=== PATIENT | female | born 1950 | race Hispanic/Latino ===

== ENCOUNTER → 2019-06-13 | Day surgery (SDC) | payer MEDICARE ==
[2019-06-08 16:42] LABS: BASOPHILS # (AUTO) 0.1 (0.0-0.1); BASOPHILS % 0.8 % (0.0-1.0); EOSINOPHILS # (AUTO) 0.4 (0.0-0.4); EOSINOPHILS % 4.3 % (0.0-6.0); HEMATOCRIT 35.8 % (34.2-44.1); HEMOGLOBIN 11.7 g/dL (12.0-16.0); LYMPHOCYTES # (AUTO) 3.5 (1.0-3.2); LYMPHOCYTES % 38.7 % (18.0-39.1); MEAN CORPUSCULAR HEMOGLOBIN 29.8 pg (28-32); MEAN CORPUSCULAR HGB CONC 32.7 g/dL (31-35); MEAN CORPUSCULAR VOLUME 91.1 fL (81-99); MONOCYTES # (AUTO) 0.8 (0.2-0.8); MONOCYTES % 8.4 % (4.4-11.3); NEUTROPHILS # (AUTO) 4.3 (2.1-6.9); NEUTROPHILS % 47.6 % (38.7-80.0); PLATELET COUNT 357 x10e3/uL (140-360); RED BLOOD COUNT 3.93 x10e6/uL (3.6-5.1); RED CELL DISTRIBUTION WIDTH 12.1 % (11.7-14.4)
[2019-06-08 17:04] LABS: BLOOD UREA NITROGEN 9 mg/dL (7-26); BUN/CREATININE RATIO 12 (6-25); CALCIUM 9.7 mg/dL (8.4-10.2); CARBON DIOXIDE 27 mmol/L (22-29); CHLORIDE 98 mmol/L (98-107); CREATININE, SERUM 0.73 mg/dL (0.57-1.11); EST GLOMERULAR FILTRATION RATE > 60 ML/MIN (60-); GLUCOSE 70 mg/dL (74-118); SODIUM 136 mmol/L (136-145)
--- NOTE | 2019-06-08 17:20 | Diagnostic Imaging Report ---
EXAMINATION: CHEST 2 VIEWS INDICATION: Pre-operative COMPARISON: None FINDINGS: TUBES and LINES: None. LUNGS: The lung volumes are normal. No focal consolidation or pulmonary edema. PLEURA: No pleural effusion or pneumothorax. HEART AND MEDIASTINUM: The cardiomediastinal silhouette is normal in size and contour. BONES AND SOFT TISSUES: No acute fracture or dislocation. UPPER ABDOMEN: No free air under the diaphragm. IMPRESSION: No focal pneumonia or pulmonary edema. Signed by: Katiana Bond MD on 06/08/2019 5:16 PM
[~2019-06-13] MED LIST: ASPIR 8181 MG PO; BACITRACIN 50,000 UNIT VIAL ONE; BENTYL10 MG/1 ML IV; BUPIVACAINE HCL 0.5% 10ML MPF VIAL INJ ONE; CEFAZOLIN SOD 1 GM/NS 50ML 100 ML IV ONE; CYCLOBENZAPRINE10 MG PO; DEXAMETHASONE SOD PHOS INJ 4 MG/ML VIAL ONE; FENTANYL CITRATE/PF 100MCG/2 ML INJ ONE; KEFLEX500 MG PO; LEVEMIR100 UNIT/1 SQ; LEXAPRO10 MG PO; LIDOCAINE HCL 2% LOCAL INJ 5 ML SDV VIAL INJ ONE; LISINOPRIL10 MG PO; METFORMIN HCL500 MG PO; MIDAZOLAM HCL 2 MG/2 ML VIAL ONE; NEOMYCIN/POLYMYX/BACITR OINT 0.9 GM PKT ONE; NOVOLOG100 UNIT/1 SQ; OMEPRAZOLE40 MG PO; ONDANSETRON HCL INJ 2MG/ML 2ML 2 MG/ML VIAL ONE; PROPOFOL IV EMULSION 10 MG/ML 20 ML VIAL ONE; SEVOFLURANE INHAL SOLN 250 ML PEN BTL ONE; SIMVASTATIN40 MG PO; ULTRAM50 MG PO
--- OUTSIDE RECORDS SUMMARY | 2019-06-13 06:51 | XMS REPORT ---
Author Author [facility] Address Unknown Phone Unavailable Care Team Providers Care Industrial Analyst Name Role Phone ARCENIO JOVEL Unavailable Unavailable Problems This patient has no known problems. Allergies, Adverse Reactions, Alerts This patient has no known allergies or adverse reactions. Medications This patient has no known medications. Results Test Description Test Time Test Comments Text Results Atomic Results Result Comments CHEST 2 VIEWS 2019-06-08 17:15:00 [place] [address] Patient Name: JAVIER DELA CRUZ MR #: [id number] : 1950 Age/Sex: 68/F Req #: [id number] Adm Physician: Ordered by: ARCENIO JOVEL DP Report #: [id number] Location: OR Room/Bed: Procedure: [id number] DX/CHEST 2 VIEWS Exam Date: 06/08/19 Exam Time: 1701 REPORT STATUS: Signed EXAMINATION: CHEST 2 VIEWS INDICATION: Pre-operative COMPARISON: None FINDINGS: TUBES and LINES: None. LUNGS: The lung volumes are normal. No focal consolidation or pulmonary edema. PLEURA: No pleural effusion or pneumothorax. HEART AND MEDIASTINUM: The cardiomediastinal silhouette is normal in size and contour. BONES AND SOFT TISSUES: No acute fracture or dislocation. UPPER ABDOMEN: No free air under the diaphragm. IMPRESSION: No focal pneumonia or pulmonary edema. Signed by: Tyrel Bond MD on 06/08/2019 5:16 PM Dictated By: TYREL BOND MD 15 Transcribed By: FLORINDA on 06/08/191715 COPY TO: ARCENIO JOVEL DPM
[2019-06-13 11:07] VITALS: BP 140/68
--- NOTE | 2019-06-13 13:52 | Operative Report ---
DATE OF PROCEDURE: 06/13/2019 SURGEON: Sonia Ware DPM PREOPERATIVE DIAGNOSES: 1. Rigid hammertoe, right second. 2. Dislocated metatarsophalangeal joint, right second with plantarflexed metatarsal. POSTOPERATIVE DIAGNOSES: 1. Rigid hammertoe, right second. 2. Dislocated metatarsophalangeal joint, right second with plantarflexed metatarsal. PROCEDURES: 1. Arthrodesis, proximal interphalangeal joint, right digit. 2. Ashutosh osteotomy, right second. 3. Use of human allograft to decrease adhesions to prevent nerve entrapment. COMPLICATIONS: None. CONDITION: Stable. PROCEDURE IN DETAIL: Under mild sedation, the patient was brought to the operating room and placed on the operating table in a supine position. Following IV sedation, anesthesia was obtained with a general anesthetic. At this point, the right foot scrubbed, prepped, and draped in the usual aseptic manner. It was then lowered to the table after the pneumatic thigh tourniquet was inflated to 350 mmHg. Attention was directed to the dorsal aspect of the right foot where a linear incision was made overlying the PIPJ joint. The incision was deepened via sharp and blunt dissection taking care to retract or cauterize neurovascular structures as necessary. It was deepened down to the level of the joint. The PIPJ joint was then exposed and the joint was then prepared for arthrodesis. An intramedullary arthrodesis implant Smart Toe II was inserted. There was noted to be adequate compression clinically with the use of intraoperative fluoroscopy. Attention was then directed to the second metatarsal MPJ joint where a linear incision was made. The incision was deepened via sharp and blunt dissection taking care to retract or cauterize neurovascular structures as necessary. At this point, there was noted to be a large amount of synovial tissue right at the MPJ. All the synovitis was debrided with the use of sharp dissection. Utilizing an oscillating saw, the metatarsal was then prepared for osteotomy. Dorsiflexion osteotomy was then performed. The toe was then put in a more anatomical alignment since it was dislocated. It was then fixated utilizing a 1.7 x 18 mm screw from [employer]. There was noted to be adequate compression clinically with the use of intraoperative fluoroscopy. The area was then flushed with copious amount of normal sterile saline solution. The area was then closed. All incisions were then closed closing the deepest layer with 4-0 Vicryl and 4-0 nylon. Before closure, a human allograft was then inserted to prevent adhesions and to prevent nerve entrapment. The patient tolerated the procedure and anesthesia well without complications, was transported to the recovery room with vital signs stable and vascular status intact to both feet. The patient will be discharged home when she meets criteria. She was given instructions to be nonweightbearing, to ice and elevate the foot while at rest. Follow up with me in the office and to call the office if you have any questions, concerns, or new problems arise. KRISTOFER Pope/GENESIS /[id number]
== END | disposition home or self-care (01) ==
LOC: OR 06:49
PROVIDERS: ATTEND Podiatrist Foot & Ankle Surgery
DX: M20.41 Other hammer toe(s) (acquired), right foot (principal); S93.124A Dislocation of metatarsophalangeal joint of right lesser toe(s), initial encounter; M21.6X1 Other acquired deformities of right foot; E11.9 Type 2 diabetes mellitus without complications; I10 Essential (primary) hypertension; X58.XXXA Exposure to other specified factors, initial encounter; Z88.2 Allergy status to sulfonamides; Z01.810 Encounter for preprocedural cardiovascular examination; Z01.812 Encounter for preprocedural laboratory examination; Z01.818 Encounter for other preprocedural examination
CPT/HCPCS: 28285; 28308; 36415 ×2; 71046; 80048; 82948; 85025; 93005; C1713 ×2; C1776; J0690; J1100; J2001; J2250; J2405; J2704; J3010; Q4150; 76000

== ENCOUNTER 2019-07-29 21:29 | Emergency (ER) | payer MEDICARE ==
[~2019-07-29] VITALS: Ht 165.1 cm; Wt 78.5 kg
[~2019-07-29 21:29] MED LIST changes: -BACITRACIN 50,000 UNIT VIAL ONE; -BENTYL10 MG/1 ML IV; -BUPIVACAINE HCL 0.5% 10ML MPF VIAL INJ ONE; -CEFAZOLIN SOD 1 GM/NS 50ML 100 ML IV ONE; -DEXAMETHASONE SOD PHOS INJ 4 MG/ML VIAL ONE; -FENTANYL CITRATE/PF 100MCG/2 ML INJ ONE; -LIDOCAINE HCL 2% LOCAL INJ 5 ML SDV VIAL INJ ONE; -MIDAZOLAM HCL 2 MG/2 ML VIAL ONE; -NEOMYCIN/POLYMYX/BACITR OINT 0.9 GM PKT ONE; -OMEPRAZOLE40 MG PO; -ONDANSETRON HCL INJ 2MG/ML 2ML 2 MG/ML VIAL ONE; -PROPOFOL IV EMULSION 10 MG/ML 20 ML VIAL ONE; -SEVOFLURANE INHAL SOLN 250 ML PEN BTL ONE; -ULTRAM50 MG PO
[2019-07-29] MEDS ORDERED: FAMOTIDINE 20 MG/2 ML VIAL IV STA (22:43)
[2019-07-29] MEDS ORDERED: SODIUM CHLORIDE 0.9% 1000ML 1,000 ML IV STA (22:43)
[2019-07-29] MEDS ORDERED: PANTOPRAZOLE 40 MG 10ML VIAL IV STA (22:43)
[2019-07-29 22:58] LABS: BASOPHILS # (AUTO) 0.1 (0.0-0.1); BASOPHILS % 0.5 % (0.0-1.0); EOSINOPHILS # (AUTO) 0.1 (0.0-0.4); EOSINOPHILS % 1.2 % (0.0-6.0); HEMATOCRIT 35.1 % (34.2-44.1); HEMOGLOBIN 11.7 g/dL (12.0-16.0); LYMPHOCYTES # (AUTO) 2.6 (1.0-3.2); LYMPHOCYTES % 26.8 % (18.0-39.1); MEAN CORPUSCULAR HEMOGLOBIN 29.9 pg (28-32); MEAN CORPUSCULAR HGB CONC 33.3 g/dL (31-35); MEAN CORPUSCULAR VOLUME 89.8 fL (81-99); MONOCYTES # (AUTO) 0.7 (0.2-0.8); MONOCYTES % 6.9 % (4.4-11.3); NEUTROPHILS # (AUTO) 6.2 (2.1-6.9); NEUTROPHILS % 64.4 % (38.7-80.0); PLATELET COUNT 331 x10e3/uL (140-360); RED BLOOD COUNT 3.91 x10e6/uL (3.6-5.1); RED CELL DISTRIBUTION WIDTH 11.9 % (11.7-14.4)
[2019-07-29 23:17] LABS: ALANINE AMINOTRANSFERASE 11 IU/L (0-55); ALBUMIN 3.9 g/dL (3.5-5.0); ALBUMIN/GLOBULIN RATIO 1.3 (0.8-2.0); ALKALINE PHOSPHATASE 71 IU/L (40-150); ANION GAP 14.8 mmol/L (8-16); BLOOD UREA NITROGEN 14 mg/dL (7-26); BUN/CREATININE RATIO 16 (6-25); CALCIUM 9.8 mg/dL (8.4-10.2); CARBON DIOXIDE 27 mmol/L (22-29); CHLORIDE 101 mmol/L (98-107); CREATINE KINASE 55 IU/L (29-168); CREATININE, SERUM 0.85 mg/dL (0.57-1.11); EST GLOMERULAR FILTRATION RATE > 60 ML/MIN (60-); GLUCOSE 150 mg/dL (74-118); LIPASE 13 U/L (8-78); POTASSIUM 3.8 mmol/L (3.5-5.1); SODIUM 139 mmol/L (136-145)
[2019-07-29 23:22] LABS: BILIRUBIN,URINE NEGATIVE (NEGATIVE); CLARITY,URINE CLEAR (CLEAR); COLOR,URINE YELLOW (YELLOW); KETONES,URINE TRACE (NEGATIVE); LEUKOCYTE ESTERASE ,URINE NEGATIVE (NEGATIVE); NITRITE,URINE NEGATIVE (NEGATIVE); PROTEIN,URINE DIPSTICK NEGATIVE (NEGATIVE); URINE UROBILINOGEN 0.2 mg/dL (0.2 - 1)
[2019-07-29 23:30] LABS: BACTERIA,URINE FEW /HPF; EPITHELIAL CELLS,URINE FEW /LPF; WBC,URINE (MAN) 0-5 /HPF (0-5)
--- NOTE | 2019-07-30 00:15 | Diagnostic Imaging Report ---
EXAMINATION: CHEST SINGLE (PORTABLE) COMPARISON: 06/08/2018 INDICATION: Vomiting, pain ^ERMD ORDER ^Y DISCUSSION: Frontal view of the chest obtained at 2311 hours. HEART AND MEDIASTINUM: The cardiomediastinal silhouette is unremarkable. Linear hyperdensity over the left clavicular head measures 1.7 cm and may be artifactual. LINES: None. LUNGS: The lungs are well inflated and clear. No pneumonia or pulmonary edema. PLEURA: No pleural effusion or pneumothorax. BONES AND SOFT TISSUES: No focal osseous lesion. The soft tissues are normal. IMPRESSION: No acute cardiopulmonary disease. Signed by: Dr. Sherice Reina MD on 07/30/2019 12:12 AM
[2019-07-30] MEDS ORDERED: KETOROLAC TROMETHAMINE 30 MG/ML VIAL IV STA (00:20)
[2019-07-30] MEDS ORDERED: DICYCLOMINE HCL 20 MG/2 ML VIAL IM ONE (00:30)
[2019-07-30] MEDS ORDERED: SODIUM CHLORIDE 0.9% 50ML 50 ML ONE (00:40)
[2019-07-30] MEDS ORDERED: IOPAMIDOL 370 MG/ML 200 ML INFUS..BTL INJ ONE (00:41)
--- NOTE | 2019-07-30 01:21 | Diagnostic Imaging Report ---
CT Abdomen And Pelvis with Intravenous Contrast INDICATION: Nausea, vomiting, epigastric pain ^abd pain ^[id number] ^0045 TECHNIQUE: Thin collimation axial images obtained from the diaphragm to the level of the pubic symphysis following the uneventful administration of 100 cc of low osmolar, nonionic intravenous contrast. Dose reduction techniques used: Automated exposure control, adjustment of the mAs and/or kVp according to patient size, standardized low-dose protocol, and/or iterative reconstruction technique. RADIATION DOSE: Total DLP: 515.5 mGy*cm Estimated effective dose: (DLP x 0.015 x size factor) mSv CTDIvol has been reviewed. It is below the limits set by the Radiation Protocol Committee (RPC). COMPARISON: None. ABDOMEN FINDINGS: Lung Bases: Clear. The visualized portions of the mediastinum are normal.. Liver: No evidence for mass. Gallbladder: Present and appears normal. No biliary ductal dilatation. Pancreas: Diffuse fatty atrophy. No mass or ductal dilatation. Spleen: Normal in size. No evidence of mass. Adrenal Glands: No evidence for mass. Kidneys: Right: Normal enhancement. No soft tissue mass. No hydronephrosis. Left: Normal enhancement. No soft tissue mass. No hydronephrosis. Lymph Nodes: No enlarged abdominal or periaortic lymph nodes. Aorta: Normal in diameter with scattered calcifications PELVIS FINDINGS: Bowel: Stomach: Collapsed but normal. Small Bowel: Normal in caliber with normal wall thickness. Large Bowel: Scattered diverticula. No associated inflammation.. Appendix: Normal appendix. Bladder: Well distended and normal. The uterus is absent. No adnexal mass. Peritoneum/retroperitoneum: No free fluid or fluid collection Bones: Grade 1 anterolisthesis of L4 on L5 without pars defects. There are degenerative changes of the posterior elements from L3 to S1. Soft tissues: Bilateral anterior abdominal wall foci of subcutaneous inflammation without evidence of air. IMPRESSION: 1. No evidence for bowel obstruction or inflammation. Diverticulosis coli. Normal appendix. 2. Bilateral anterior abdominal wall subcutaneous cutaneous inflammation that may be the result of injections or chronic inflammation. Signed by: Dr. Sherice Reina MD on 07/30/2019 1:17 AM
[2019-07-30] MEDS ORDERED: BENTYL10 MG/1 ML IV (01:31)
[2019-07-30] MEDS ORDERED: OMEPRAZOLE40 MG PO (01:31)
[2019-07-30] MEDS ORDERED: ULTRAM50 MG PO (01:44)
== END 2019-07-30 01:50 | disposition home or self-care (01) ==
LOC: ER 21:29
DX: R10.13 Epigastric pain (principal); R10.84 Generalized abdominal pain; R11.2 Nausea with vomiting, unspecified; K29.00 Acute gastritis without bleeding; K21.9 Gastro-esophageal reflux disease without esophagitis; K25.3 Acute gastric ulcer without hemorrhage or perforation; I10 Essential (primary) hypertension
CPT/HCPCS: 36415; 71045; 74177; 80053; 81001; 82550; 82553; 83690; 84484; 85025; 93005; 99284; C9113; J0500; J1885; J7030; Q9967

== ENCOUNTER → 2019-09-26 | Day surgery (SDC) | payer MEDICARE ==
[2019-09-20 12:28] LABS: BASOPHILS % 0.4 % (0.0-1.0); EOSINOPHILS # (AUTO) 0.2 (0.0-0.4); EOSINOPHILS % 2.1 % (0.0-6.0); HEMATOCRIT 37.8 % (34.2-44.1); HEMOGLOBIN 12.2 g/dL (12.0-16.0); LYMPHOCYTES # (AUTO) 2.4 (1.0-3.2); LYMPHOCYTES % 33.9 % (18.0-39.1); MEAN CORPUSCULAR HGB CONC 32.3 g/dL (31-35); MEAN CORPUSCULAR VOLUME 92.9 fL (81-99); MONOCYTES # (AUTO) 0.6 (0.2-0.8); MONOCYTES % 8.7 % (4.4-11.3); NEUTROPHILS # (AUTO) 3.9 (2.1-6.9); NEUTROPHILS % 54.6 % (38.7-80.0); PLATELET COUNT 332 x10e3/uL (140-360); RED BLOOD COUNT 4.07 x10e6/uL (3.6-5.1); RED CELL DISTRIBUTION WIDTH 12.1 % (11.7-14.4)
[2019-09-20 12:44] LABS: BLOOD UREA NITROGEN 10 mg/dL (7-26); BUN/CREATININE RATIO 13 (6-25); CALCIUM 9.7 mg/dL (8.4-10.2); CARBON DIOXIDE 29 mmol/L (22-29); CHLORIDE 100 mmol/L (98-107); CREATININE, SERUM 0.78 mg/dL (0.57-1.11); EST GLOMERULAR FILTRATION RATE > 60 ML/MIN (60-); GLUCOSE 141 mg/dL (74-118); SODIUM 137 mmol/L (136-145)
[~2019-09-26] MED LIST changes: +BENTYL10 MG/1 ML IV; +BUPIVACAINE HCL 0.5% INJ 30 ML VIAL INJ ONE; +DEXAMETHASONE SOD PHOS INJ 4 MG/ML VIAL ONE; +EPHEDRINE SULFATE INJ 50 MG/10 ML SYR ONE; +ESTRADIOL1 MG PO; +FENTANYL CITRATE/PF 100MCG/2 ML INJ ONE; +LIDOCAINE HCL 2% LOCAL INJ 5 ML SDV VIAL INJ ONE; +METOPROLOL SUCC25 MG PO; +MIDAZOLAM HCL 2 MG/2 ML VIAL ONE; +NEOSTIGMINE 1 MG/ML 10ML VIAL ONE; +OMEGA 3 FISH O1 EACH PO; +OMEPRAZOLE40 MG PO; +ONDANSETRON HCL INJ 2MG/ML 2ML 2 MG/ML VIAL ONE; +PROPOFOL IV EMULSION 10 MG/ML 20 ML VIAL ONE; +ULTRAM50 MG PO; +VITAMIN B122500 MCG PO
[2019-09-26] MEDS: CEFAZOLIN SOD 1 GM/NS 50ML 100 ML IV ONE (08:02)
[2019-09-26] MEDS: ACETAMINOPHEN 1000 MG/100 ML 100 ML IV ONE (09:32)
[2019-09-26] MEDS: KETOROLAC TROMETHAMINE 30 MG/ML VIAL ONE (09:33)
[2019-09-26] MEDS: FENTANYL CITRATE/PF 100MCG/2 ML INJ ONE (09:50)
[2019-09-26 10:35] VITALS: BP 130/60
--- NOTE | 2019-09-26 13:42 | Operative Report ---
DATE OF PROCEDURE: 09/26/2019 SURGEON: Sonia Ware DPM PREOPERATIVE DIAGNOSES: 1. Painful hardware PIPJ with dislocation. 2. 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 POSTOPERATIVE DIAGNOSES: 1. Painful hardware PIPJ with dislocation. 2. 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 PROCEDURES: 1. Removal of painful hardware, right PIP. 2. Tenotomy and capsulotomy, 2nd MPJ. 3. Use of human allograft to decrease contraction and adhesions. COMPLICATIONS: None. CONDITION: Stable. PROCEDURE IN DETAIL: Under mild sedation, the patient was brought to the operating room, placed on the operating table in a supine position. Following IV sedation, anesthesia was obtained with a general anesthetic. At this point, the right foot was scrubbed, prepped, and draped in the usual aseptic manner. It was then lowered to the table. Attention was directed to the dorsal aspect of the right foot, where a linear incision was made overlying the PIPJ joint. The incision was deepened down to the level of the joint. The joint was then visualized. The hardware was then removed. This was confirmed with the use of intraoperative fluoroscopy. The area was then flushed with copious amount of normal sterile saline solution. Attention was directed to the 2nd MPJ, where it was noted to be a large contracture right overlying the joint. The incision was deepened down to the level of the tendon and capsule. Tendon was elevated and the capsule was released thereby releasing the contracture. The areas were flushed with copious amount of normal sterile saline solution. Human allograft was then inserted and noted to prevent adhesions to promote healing. The area was then closed, closing the deepest layer with 3-0 Vicryl and 4-0 nylon. Clean dressing was applied consisting of Adaptic, 4x4s, Kerlix, and an Ras bandage. The patient tolerated the procedure and anesthesia well without complications and was transported to recovery room with vital signs stable and vascular status intact to both feet. The patient will be discharged home when she meets criteria. She was given instructions to be partial weightbearing with the use of a fracture boot to that foot, to ice and elevate the foot while at rest, to call the office if any questions, concerns, or new problems arise. KRISTOFER Pope/EDWARDL /[id number]
== END | disposition home or self-care (01) ==
LOC: OR 06:15
PROVIDERS: ATTEND Podiatrist Foot & Ankle Surgery
DX: T84.84XA Pain due to internal orthopedic prosthetic devices, implants and grafts, initial encounter (principal); T84.89XA Other specified complication of internal orthopedic prosthetic devices, implants and grafts, initial encounter; I10 Essential (primary) hypertension; E11.9 Type 2 diabetes mellitus without complications; F32.9 Major depressive disorder, single episode, unspecified; Y83.8 Other surgical procedures as the cause of abnormal reaction of the patient, or of later complication, without mention of misadventure at the time of the procedure; M24.574 Contracture, right foot; Z88.2 Allergy status to sulfonamides; Z01.812 Encounter for preprocedural laboratory examination; Z79.84 Long term (current) use of oral hypoglycemic drugs; Z79.82 Long term (current) use of aspirin; Z79.4 Long term (current) use of insulin; Z87.891 Personal history of nicotine dependence
CPT/HCPCS: 20680; 28270; 36415 ×2; 80048; 82948; 85025; 88300; C1713; J0131; J0690; J1100; J1885; J2001; J2250; J2405; J2704; J2710; J3010; Q4150; 76000

== ENCOUNTER 2020-05-02 05:38 | Observation (INO) | payer MEDICARE, OTHER ==
--- NOTE | 2020-04-29 15:10 | Diagnostic Imaging Report ---
EXAM: CHEST 2 VIEWS DATE: 04/29/2020 2:47 PM INDICATION: Preoperative evaluation COMPARISON: 07/29/2019 FINDINGS: The trachea is midline. The lungs are symmetrically expanded without evidence for large focal consolidation, pneumothorax, or significant pleural effusion. The cardiomediastinal silhouette and pulmonary vasculature are within normal limits. No acute osseous abnormality is identified. The surrounding soft tissues are unremarkable. IMPRESSION: No acute cardiopulmonary process identified. Signed by: Dr. Michael Escoto MD on 04/29/2020 3:06 PM
[2020-04-29 15:25] LABS: BASOPHILS # (AUTO) 0.1 (0.0-0.1); BASOPHILS % 0.7 % (0.0-1.0); EOSINOPHILS # (AUTO) 0.1 (0.0-0.4); EOSINOPHILS % 1.2 % (0.0-6.0); HEMATOCRIT 36.6 % (34.2-44.1); HEMOGLOBIN 11.8 g/dL (12.0-16.0); LYMPHOCYTES # (AUTO) 2.6 (1.0-3.2); LYMPHOCYTES % 29.2 % (18.0-39.1); MEAN CORPUSCULAR HEMOGLOBIN 28.8 pg (28-32); MEAN CORPUSCULAR HGB CONC 32.2 g/dL (31-35); MEAN CORPUSCULAR VOLUME 89.3 fL (81-99); MONOCYTES # (AUTO) 0.7 (0.2-0.8); MONOCYTES % 8.4 % (4.4-11.3); NEUTROPHILS # (AUTO) 5.3 (2.1-6.9); NEUTROPHILS % 60.2 % (38.7-80.0); PLATELET COUNT 368 x10e3/uL (140-360); RED CELL DISTRIBUTION WIDTH 11.9 % (11.7-14.4)
[2020-04-29 15:35] LABS: INR 0.81; PROTHROMBIN TIME 11.7 seconds (11.9-14.5)
[2020-04-29 15:36] LABS: PARTIAL THROMBOPLASTIN TIME 25.5 seconds (23.8-35.5)
[2020-04-29 15:39] LABS: ANION GAP 12.7 mmol/L (8-16); CALCIUM 9.6 mg/dL (8.4-10.2); CREATININE, SERUM 1.15 mg/dL (0.57-1.11); POTASSIUM 4.7 mmol/L (3.5-5.1)
[2020-05-02] VITALS (7 sets, daily range): BP systolic 137–160; BP diastolic 56–71
[~2020-05-02] VITALS: Ht 165.1 cm; Wt 79.4 kg
[~2020-05-02 05:38] MED LIST changes: -BUPIVACAINE HCL 0.5% INJ 30 ML VIAL INJ ONE; -DEXAMETHASONE SOD PHOS INJ 4 MG/ML VIAL ONE; -EPHEDRINE SULFATE INJ 50 MG/10 ML SYR ONE; -FENTANYL CITRATE/PF 100MCG/2 ML INJ ONE; +HYDROCHLOROTHIA25 MG PO; -LIDOCAINE HCL 2% LOCAL INJ 5 ML SDV VIAL INJ ONE; +METOCLOPRAM5 MG/5 ML PO; -MIDAZOLAM HCL 2 MG/2 ML VIAL ONE; -NEOSTIGMINE 1 MG/ML 10ML VIAL ONE; -ONDANSETRON HCL INJ 2MG/ML 2ML 2 MG/ML VIAL ONE; -PROPOFOL IV EMULSION 10 MG/ML 20 ML VIAL ONE
[2020-05-02] MEDS ORDERED: VANCOMYCIN 1GM/NS 250 ML 250 ML ONE (06:12)
[2020-05-02] MEDS ORDERED: BACITRACIN 50,000 UNIT VIAL ONE (06:41)
[2020-05-02] MEDS ORDERED: THROMBIN FOR SOLN 5,000 UNIT VIAL ONE (06:41)
[2020-05-02] MEDS ORDERED: BUPIVACAINE 0.25%/EPI 30ML SDV INJ ONE (06:41)
[2020-05-02] MEDS ORDERED: ACETAMINOPHEN 1000 MG/100 ML 100 ML IV ONE ×2 (07:18)
[2020-05-02] MEDS ORDERED: LIDOCAINE HCL (LTA) 4 ML SOLN ONE (07:19)
[2020-05-02] MEDS ORDERED: HYDROMORPHONE 2MG/ML 2 MG/ML ML IV PRN (08:45)
[2020-05-02] MEDS ORDERED: ZOLPIDEM TARTRATE 5 MG TAB PO PRN (08:45)
[2020-05-02] MEDS ORDERED: DEXTROSE 50% SYRINGE 50 ML IV PRN (08:45)
[2020-05-02] MEDS ORDERED: MAGNESIUM/ALUMINUM/SIMETHICONE 30 ML UDC PO PRN (08:45)
[2020-05-02] MEDS ORDERED: OXYCODONE/ACETAMINOPHEN 5-325 1 EACH TABLET PO PRN (08:45)
[2020-05-02] MEDS ORDERED: CARISOPRODOL 350 MG TAB PO PRN (08:45)
[2020-05-02] MEDS ORDERED: PROMETHAZINE HCL (IM) 25 MG/ML VIAL IM PRN (08:45)
[2020-05-02] MEDS ORDERED: MORPHINE SULFATE INJ 4 MG/ML INJ 1ML IM PRN (08:45)
[2020-05-02] MEDS ORDERED: ACETAMINOPHEN 325 MG TAB PO PRN (08:45)
[2020-05-02] MEDS ORDERED: ONDANSETRON HCL INJ 2MG/ML 2ML 2 MG/ML VIAL IV PRN (08:45)
--- NOTE | 2020-05-02 09:10 | NUR ---
received to rm aaox3 no distress noted,received in stable condition. updated on poc vocied understanding, ivf infusing to r hand 20g no ss of infiltration noted, dsg to anterior cervical with collar in place, no other co vocied call light in reach will continue to monitor
--- NOTE | 2020-05-02 09:12 | Operative Report ---
DATE OF PROCEDURE: 05/02/2020 SURGEON: Geo Hoyos MD PREOPERATIVE DIAGNOSIS: C5-6 spondylosis and foraminal stenosis with radiculopathy, M50.122. POSTOPERATIVE DIAGNOSIS: C5-6 spondylosis and foraminal stenosis with radiculopathy, M50.122. PROCEDURES: 1. C5-6 anterior cervical diskectomy and microsurgical osteophyte resection and allograft fusion, 84426. 2. Preparation of MTF corticocancellous allograft, 45445. 3. C5-C6 anterior cervical plating with Synthes DPM plate, 58922. ANESTHESIA: General. INDICATIONS: The patient is a 69-year-old woman, who presents with C5-6 spondylosis and foraminal stenosis with radiculopathy and was taken to surgery for anterior cervical decompression and fusion. PROCEDURE IN DETAIL: After induction of general anesthesia, the patient was placed on the operating table in supine position. The right side of the neck was prepped and draped in sterile fashion. The fluoroscopic C-arm was positioned in cross-table lateral orientation. A transverse incision was created on the right side of neck superimposed on the C5-6 disk space as determined by fluoroscopy. The platysma was divided in line with the incision. A subplatysmal dissection was carried out and avascular plane of dissection was developed medial to the sternocleidomastoid muscle and was followed medial to the carotid sheath to the anterior border of the cervical spine. The deep cervical fascia was opened. The esophagus was retracted to the left. The attachments of longus colli muscles to the anterolateral aspects of vertebral bodies of C5 and C6 were divided. The anterior longitudinal ligament was resected. [place] posts were inserted into C5 and C6 vertebrae and the disk space was distracted. The anterior annulus of the disk was incised with a #11 blade. The contents of the disk were thoroughly evacuated with angled curettes and pituitary rongeurs. The posterior osteophytes were meticulously drilled with a 2 mm cutting bur on a high-speed drill until they were completely removed. The posterior annulus of the disk, herniated disk material, and the posterior longitudinal ligament were resected layer by layer until the dura was fully exposed and decompressed. The medial aspects of the uncinate processes were resected bilaterally to further expose any compressed origins of the corresponding nerve roots. After satisfactory decompression had been achieved, the endplates were prepared for fusion. The disk space was sized and found to be 8 mm in thickness and piece of MTF corticocancellous allograft measuring 8 mm in thickness was selected and loaded onto a corresponding Synthes ZPN plate and inserted into the disk space under distraction and fluoroscopic guidance. The distraction was released and distraction posts were removed. The plate was then screwed to the endplates of C5 and C6 with two pairs of 14 mm screws. All screws were locked and excellent construct was obtained. The wound was copiously irrigated with bacitracin solution. Meticulous hemostasis was secured. Retractor was removed. The platysma was closed with 3-0 Vicryl sutures. The skin was closed with 4-0 Monocryl suture in a subcuticular fashion. Steri-Strips and dressing were applied. The patient was awakened, extubated, and taken to postanesthesia care unit in stable condition. No intraoperative complications were encountered. Estimated blood loss was 10 mL. Geo Hoyos MD PP/MODL /[id number]
--- OUTSIDE RECORDS SUMMARY | 2020-05-02 09:30 | XMS REPORT | Clinical Summary ---
Demographics Address [address] [place] [address] Home Phone Preferred Language Unknown Marital Status Yazdanism Affiliation CAT Race Unknown Ethnic Group Unknown Author Author [facility] Organization [facility] Address Unknown Phone Unavailable Care Team Providers Care Pharmacists Name Role Phone PCP Unavailable Allergies Comments Active Allergy Reactions Severity Noted Date SWELLING OF FACE Sulfa (Sulfonamide Rash 08/31/2006 Antibiotics) Medications End Date Status Medication Sig Dispensed Refills Start Date Active ASPIRIN 81 MG TAB 1 TABLET 0 DAILY Active OMEGA 3 OR None Entered 0 Active MULTI-VITAMIN OR None Entered 0 Active INSULIN SYRINGE 1mL Use to inject 300 Each 2 04/23 30GX5/16" insulin Twice 5 syringe-needleIndications daily. Use a : Diabetes mellitus new syringe each time. Active polyethylene glycol Add lukewarm 4000 mL 0 09/02 (GOLYTELY) 236-22.74-6.74 drinking 5 -5.86 gram oral water to the solutionIndications: Iron fill olu (4 deficiency anemia, liters) and unspecified iron shake. Drink deficiency as directed by your doctor.. Active insulin detemir (LEVEMIR) Inject 30 60 mL 3 100 unit/mL units under 6 injectionIndications: the skin in Type 2 diabetes mellitus the morning with other specified and 25 units complication in the evening.. Active conjugated estrogens Insert 1 gram 30 g 2 (PREMARIN) 0.625 mg/gram vaginally 6 vaginal creamIndications: daily. Dyspareunia Active triamcinolone (KENALOG) Apply to 80 g 0 0.025 % affected area 6 ointmentIndications: Skin 2 times lesion of scalp daily. Active naproxen (NAPROSYN) 375 Take 1 tablet 60 tablet 0 mg tabletIndications: by mouth 2 6 Tail bone pain times daily as needed for Pain. Active metFORMIN (GLUCOPHAGE) Take 1 tablet 180 tablet 3 0 1,000 mg by mouth 2 6 tabletIndications: times daily Controlled type 2 (with meals). diabetes mellitus with complication, with long-term current use of insulin Active cetirizine (ZYRTEC) 10 mg Take 1 tablet 90 tablet 0 tabletIndications: Acute by mouth 6 sinusitis, unspecified daily. Active codeine-guaiFENesin Take 5 mL by 120 mL 0 06/15 (CHERATUSSIN AC) 10-100 mouth 3 times 6 mg/5 mL syrupIndications: daily as Acute sinusitis, needed for unspecified Cough. Active cyclobenzaprine Take 1 tablet 90 tablet 3 07/02/20 1 (FLEXERIL) 10 mg by mouth 6 tabletIndications: nightly at Shoulder pain bedtime as needed for Muscle Spasms. Active citalopram (CELEXA) 10 mg Take 1 tablet 90 tablet 2 tabletIndications: by mouth 6 Depression daily. Active lisinopril (PRINIVIL, Take 1 tablet 90 tablet 0 ZESTRIL) 10 mg by mouth 6 tabletIndications: HTN, daily. goal below 140/90 Active INSULIN SYRINGE 0.5mL Use to inject 360 Syringe 1 30GX5/16" (MONOJECT medication 4 7 ULTRACOMFORT INSULIN SYR times daily. 0.5ML 30GX5/16") Use a new syringe-needleIndications syringe each : Type 2 diabetes time. mellitus without complication Active insulin aspart (NOVOLOG) Inject 12 10 mL 0 0 100 unit/mL units under 7 injectionIndications: the skin Type 2 diabetes mellitus before lunch with complication, with and dinner. long-term current use of insulin Active blood glucose Use as 1 Kit 0 meterIndications: Type 2 directed. 7 diabetes mellitus with Truemetrix complication, with meter. Please long-term current use of dispense insulin brand that insurance covers. Active blood glucose test Test 3 times 300 Each 0 stripsIndications: Type 2 daily 7 diabetes mellitus with complication, with long-term current use of insulin Active lancets 28 Test 3 times 300 Each 0 gaugeIndications: Type 2 daily 7 diabetes mellitus with complication, with long-term current use of insulin Active Problems Problem Noted Date Foot pain, left 12/11/2014 Broken tooth 11/05/2014 Dental decay 11/05/2014 Teeth decayed 09/10/2014 Type 2 diabetes mellitus Mixed hyperlipidemia Essential hypertension, benign Overview: NO CAD, CANCER Immunizations Name Administration Dates Next Due Herpes Zoster Vaccine In 02/26/2015, 09/28/2014 (Def erred: Vaccine Clinic Unavailable) Influenza Vaccine 09/02/2015, 09/28/2014 Ketorolac 30mg/1ml Inj 12/07/2014 (x ) Pneumococcal 13-valent 04/21/2016 (Deferred: Other ) conj 0.5 mL injection Pneumococcal 7-valent 10/11/2013 conj 0.5 mL injection Tdap Tetanus, diphtheria, 10/11/2006 acellular pertussis Vaccine Family History Medical History Relation Name Comments Asthma Father Diabetes Maternal Grandmother Heart Maternal Grandmother Hypertension Maternal Grandmother Arthritis Mother Cataracts Mother Diabetes Mother Retinal detachment Mother Heart Mother Hypertension Mother Hypothyroid Mother NO CANCER Relation Name Status Comments Father Father heart attack (Age 56) Maternal Grandmother Maternal Grandmother Maternal Grandmother Mother Mother Mother Mother Mother Mother heart attack (Age 84) Social History Date Tobacco Use Types Packs/Day Years Used Former Smoker Smokeless Tobacco: Former User Tobacco Cessation: Counseling Given: No Comments: quit 30 years ago Drinks/Week oz/Week Comments Alcohol Use 0 Standard drinks or equivalent 0.0 MARGARITAS ONE OR TWIC E A MONTH Yes Sex Assigned at Date Recorded Not on file Industry Job Start Date Occupation Not on file Not on file Not on file Travel End Travel History Travel Start No recent travel history available. Last Filed Vital Signs Not on file Plan of Treatment Health Maintenance Due Date Last Done Comments Colorectal Cancer Scrn 10/08/2016 10/08/2015, , 07/06/2007, Annual (FIT/FOBT) Age 51 Additional history exists to 76 DM HGBA1C (Yearly) 03/25/2017 03/25/2016, 016, 09/02/2015, Additional history exists DM Foot Exam (Yearly) 04/21/2017 04/21/2016, 03/23 DM Retinal Exam (Yearly) 06/22/2017 06/22/2016, 1 12/21/2014, 09/18/2014, Additional history exists Breast Cancer Scrn 12/15/2017 12/15/2016, 015, 07/04/2014, (Yearly) Additional history exists IMM Pneumococcal Age 66 Completed 10/11/2013 and Up Results Not on fileafter 05/02/2019 Insurance Type Payer Benefit Subscriber ID Effective Phone Address Plan / Dates Group [employer] xxxxxxxxxx 2016-P [phone] [address] [address] [place] [address] Guarantor Name Account Relation to Date of Phone Billin g Address Type Patient Colleen,Nixon Personal/F Head of 04/11/1953 [address] [facility] (Home) [place] [address] (Self)
--- OUTSIDE RECORDS SUMMARY | 2020-05-02 09:30 | XMS REPORT | Continuity of Care Document ---
Author Author [facility] t Organization [facility] Address [address] [place] [id number] Phone Unavailable Care Team Providers Care Special Assemblies Supervisor Name Role Phone PATRICK MATOS MD PCP BROOKLYN RODAS Attphys Unavailable JORDAN, S AMBHARDY Attphys Unavailable ARCENIO JOVEL Attphys Unavailable Payers Payer Name Policy Type Policy Number Effective Date Expiration Date Rachael garcía [facility] [place] [facility] [id number] 2018 00:00:00 [facility] Problems Condition Name Condition Details Condition Category Status Onset Date Resolution Date Last Treatment Date Treating Clinician Comments Source Foot pain, left Foot pain, left Disease Active 2014-12-11 00:00:00 [facility] Broken tooth Broken tooth Disease Active 2014-11-05 00:00:00 [facility] Dental decay Dental decay Disease Active 2014-11-05 00:00:00 [facility] Teeth decayed Teeth decayed Disease Active 2014-09-10 00:00:00 [facility] Type 2 diabetes mellitus Type 2 diabetes mellitus Disease Active [facility] Mixed hyperlipidemia Mixed hyperlipidemia Disease Active [facility] Essential hypertension, benign Essential hypertension, benign Disease Active Overview: NO CAD, CANCER [facility] Allergies, Adverse Reactions, Alerts Allergy Name Allergy Type Status Severity Reaction(s) Onset Date Inacti ve Date Treating Clinician Comments Source Sulfa (Sulfonamide Antibiotics) Allergy to Substance Active SWELLING 2019-06-08 00:00:00 [facility] Sulfa (Sulfonamide Antibiotics) Propensity to adverse reactions to drug Active Rash 2006-08-31 00:00:00 SWELLING OF FACE [facility] Family History Family Member Diagnosis Comments Start Date Stop Date Source Natural father Asthma [facility] Maternal grandmother [facility]aternal grandmother Heart [facility] Maternal grandmother Hypertension [facility] Natural mother Arth[facility] Natural mother Cataracts [facility] Natural mother Diabetes [facility] Natural mother Retinal detachment [facility] Natural mother Heart [facility] Natural [facility] Hypertension [facility] Natural mother Hypothyroid [facility] Social History Social Habit Start Date Stop Date Quantity Comments Source Tobacco Comment quit 30 years ago [facility] Alcohol Comment MARGARITAS ONE OR TWICE A MONTH [facility] Sex Assigned At Located within [facility] Alcohol intake 2016-12-15 00:00:00 2016-12-15 00:00:00 [facility] Smoking Status Start Date Stop Date Source Former smoker 2016-12-15 00:00:00 2016-12-15 00:00:00 [facility] Medications Ordered Medication Name Filled Medication Name Start Date Stop Da te Current Medication? Ordering Clinician Indication Dosage Frequency Signature (SIG) Comments Components Source Dicyclomine Hcl (Bentyl) 10 Mg/1 Ml Ampul Dicyclomine Hcl (Bentyl) 10 Mg/1 Ml Ampul 2019-07-30 00:00:00 Yes Evangelina Silva Md 10 Four Times Daily [facility] Omeprazole 40 Mg Capsule. Omeprazole 40 Mg Capsule. 2019-07-30 00:00:00 Yes Evangelina Silva Md 40 Daily [facility] Tramadol Hcl (Ultram) 50 Mg Tablet Tramadol Hcl (Ultram) 50 Mg Tablet 2019-07-30 00:00:00 Yes Evangelina Silva Md 50 E very 6 Hours as needed for Abdominal Pain [facility] insulin aspart (NOVOLOG) 100 unit/mL injection 2016-12-15 00 :00:00 Yes Type 2 diabetes mellitus with complication, with long-term current use of insulin Inject 12 units under the skin before lunch and dinner. [facility] blood glucose meter 2016-12-15 00:00:00 Yes Type 2 diabetes mellitus with complication, with long-term current use of insulin Use as directed. Truemetrix meter. Please dispense brand that insurance covers. [facility] blood glucose test strips 2016-12-15 00:00:00 Yes Type 2 diabetes mellitus with complication, with long-term current use of insulin Test 3 times daily [facility] lancets 28 gauge 2016-12-15 00:00:00 Yes Type 2 diabetes mellitus with complication, with long-term current use of insulin Test 3 times daily [facility] INSULIN SYRINGE 0.5mL 30GX5/16" (MONOJEC T ULTRACOMFORT INSULIN SYR 0.5ML 30GX5/16") syringe-needle 2016-12-08 00:00:00 Yes Type 2 diabetes mellitus without complication Use to inject medic ation 4 times daily. Use a new syringe each time. [facility] lisinopril (PRINIVIL, ZESTRIL) 10 mg tablet 2016-10-05 00:00 :00 Yes HTN, goal below 140/90 10mg QD Take 1 tablet by mouth daily. [facility] citalopram (CELEXA) 10 mg tablet 2016-07-29 00:00:00 Yes Depression 10mg QD Take 1 tablet by mouth daily. [facility] cyclobenzaprine (FLEXERIL) 10 mg tablet 2016-07-02 00:00:00 Yes Shoulder pain 10mg Take 1 tablet by antoni th nightly at bedtime as needed for Muscle Spasms. [facility] metFORMIN (GLUCOPHAGE) 1,000 mg tablet 2016-06-15 00:00:00 Yes Controlled type 2 diabetes mellitus with complication, with long-term current use of insulin 1000mg Take 1 tablet by mouth 2 times daily (with meal s). [facility] cetirizine (ZYRTEC) 10 mg tablet 2016-06-15 00:00:00 Yes Acute sinusitis, unspecified 10mg QD Take 1 tablet by mouth daily. [facility] codeine-guaiFENesin (CHERATUSSIN AC) 10-100 mg/5 mL syrup 2016-06-15 00:00:00 Yes Acute sinusitis, unspecified 5mL Take 5 mL by mouth 3 times daily as needed for Cough. [facility] naproxen (NAPROSYN) 375 mg tablet 2016-05-20 00:00:00 Ye s Tail bone pain 375mg Take 1 tablet by mouth 2 times daily as needed for Jose De Jesus n. [facility] conjugated estrogens (PREMARIN) 0.625 mg/gram vaginal cream 2016-03-19 00:00:00 Yes Dyspareunia 1g QD Insert 1 gram vaginally daily. [facility] triamcinolone (KENALOG) 0.025 % ointment 2016-03-19 00:00:00 Yes Skin lesion of scalp Q.5D Apply to affected area 2 times daily. [facility] insulin detemir (LEVEMIR) 100 unit/mL injection 2016-01-20 0 0:00:00 Yes Type 2 diabetes mellitus with other specified complication Inject 30 units under the skin in the morning and 25 units in the evening.. [facility] ASPIRIN 81 MG TAB 2015-10-08 10:49:35 Yes 1 TABLET DAILY [facility] OMEGA 3 OR 2015-10-08 10:49:35 Yes None Ente red [facility] MULTI-VITAMIN OR 2015-10-08 10:49:35 Yes Non e Entered [facility] polyethylene glycol (GOLYTELY) 236-22.74-6.74 -5.86 gram ora l solution 2015-09-02 00:00:00 Yes Iron deficiency anemi a, unspecified iron deficiency Add lukewarm drinking water to the fill olu (4 liters) and shake. Drink as directed by your doctor.. [facility] INSULIN SYRINGE 1mL 30GX5/16" syringe-needle 2015-05-20 00:0 0:00 Yes Diabetes mellitus Use to inject insuli n Twice daily. Use a new syringe each time. [facility] Cephalexin Monohydrate (Keflex) 500 Mg Capsule Cephale shilpa Monohydrate (Keflex) 500 Mg Capsule Yes 500 Four Times Daily [facility] Cyclobenzaprine Hcl 10 Mg Tablet Cyclobenzaprine Hcl 10 Mg Tablet Yes 20 Bedtime [facility] Escitalopram Oxalate (Lexapro) 10 Mg Tablet Escitalopr am Oxalate (Lexapro) 10 Mg Tablet Yes 10 Daily [facility] Lisinopril 10 Mg Tablet Lisinopril 10 Mg Tablet Yes 10 Daily [facility] Simvastatin 40 Mg Tablet Simvastatin 40 Mg Tablet Yes 40 Bedtime [facility] Aspirin (Aspir 81) 81 Mg Tablet., 81 Mg Oral Aspirin (Aspir 81) 81 Mg Tablet., 81 Mg Oral 2019-06-12 00:00:00 No 81 Da zulma [facility] Insulin Aspart (Novolog) 100 Unit/1 Ml Cartridge, Unkn own Dose Sub-Q Insulin Aspart (Novolog) 100 Unit/1 Ml Cartridge, Unknown Dose Sub-Q 2019-06-12 00:00:00 No Three Times A Day [facility] Insulin Detemir (Levemir) 100 Unit/1 Ml Vial, 35 Units Sub-Q Insulin Detemir (Levemir) 100 Unit/1 Ml Vial, 35 Units Sub-Q 2019-06-12 00:00:00 No 35 Twice A Day [facility] Metformin Hcl 500 Mg Tablet, 500 Mg Oral Metformin Hcl 500 Mg Tablet, 500 Mg Oral 2019-06-12 00:00:00 No 500 Twice A Day [facility] Simvastatin 40 Mg Tablet, Unknown Dose Oral Simvastat in 40 Mg Tablet, Unknown Dose Oral 2019-06-12 00:00:00 No Today At 9:00 PM [facility] Immunizations Ordered Immunization Name Filled Immunization Name Date Status Comments Source Influenza Vaccine 2015-09-02 00:00:00 [facility] Herpes Zoster Vaccine In Clinic 2015-02-26 00:00:00 [facility] Ketorolac 30mg/1ml Inj (x ) 2014-12-07 00:00:00 [facility] Influenza Vaccine 2014-09-28 00:00:00 [facility] Pneumococcal 7-valent conj 0.5 mL injection 2013-10-11 00: 00:00 [facility] Tdap Tetanus, diphtheria, acellular pertussis Vaccine 2006-10-11 00:00:00 [facility] Procedures Procedure Date / Time Performed Performing Clinician [facility] e Computed tomography of abdomen and pelvis with contrast 2018 00:00:00 EVANGELINA SILVA [facility] REPAIR OF HAMMERTOE 2019-06-13 00:00:00 ARCENIO JOVEL [facility] INCISION OF METATARSAL 2019-06-13 00:00:00 LACYARCENIO FONSECA [facility] X-ray of chest, two views 2019-06-08 00:00:00 ARMAND JOVEL [facility] Plan of Care Planned Activity Planned Date Details Comments Source Future Scheduled Test 2017-12-15 00:00:00 Breast Cancer Scrn (Yearly) [code = Breast Cancer Scrn (Yearly)] [facility] Scheduled Test 2017-06-22 00:00:00 DM Retinal Exam (Y early) [code = DM Retinal Exam (Yearly)] [facility] Scheduled Test 2017-04-21 00:00:00 DM Foot Exam (Year ly) [code = DM Foot Exam (Yearly)] [facility] Scheduled Test 2017-03-25 00:00:00 DM HGBA1C (Yearly) [code = DM HGBA1C (Yearly)] [facility] Scheduled Test 2016-10-08 00:00:00 Colorectal Cancer Scrn Annual (FIT/FOBT) Age 50 to 75 [code = Colorectal Cancer Scrn Annual (FIT/FOBT) Age 50 to 75] [facility] Encounters Start Date/Time End Date/Time Encounter Type Admission Type Attendi [facility] Care Department Encounter ID Source 2019-07-29 21:29:00 2019-07-30 01:50:00 Departed Emergency Room 1 EVANGELINA SILVA [facility] [id number] [facility] 2019-06-13 06:49:00 2019-06-13 06:49:00 Registered Surgical Day Car e ARCENIO HADDAD [facility] [id number] [facility] Results Test Description Test Time Test Comments Results Result Comments Source CHEST 2 VIEWS 2020-04-29 15:06:00 [facility] [address] [place] [address] Patient Name: JAVIER DELA CRUZ MR #: [id number] : 1950 Age/Sex: 69/F Req #: [id number] Adm Physician: Ordered by: BROOKLYN RODAS MD Report #: [id number] Location: OR Room/Bed: Procedure: [id number] DX/CHEST 2 VIEWS Exam Date: Exam Time: REPORT STATUS: Signed EXAM: CHEST 2 VIEWS DATE: 04/29/2020 2:47 PM INDICATION: Preoperative evaluation COMPARISON: 07/29/2019 FINDINGS: The trachea is midline. The lungs are symmetrically expanded without evidence for large focal consolidation, pneumothorax, or significant pleural effusion. The cardiomediastinal silhouette and pulmonary vasculature are within normal limits. No acute osseous abnormality is identified. The surrounding soft tissues are unremarkable. IMPRESSION: No acute cardiopulmonary process identified. Signed by: Dr. Michael Escoto MD on 04/29/2020 3:06 PM Dictated By: MICHAEL ESCOTO MD [id number] COPY TO: BROOKLYN RODAS MD DIAG MAMM LEFT BART CAD DIGITAL 2019-11-13 08:54:56 - DIAG MAMM LEFT BART CAD DIGITALUNILATERAL LEFT DIGITAL DIAGNOSTIC MAMMOGRAM 3D/2D WITH CAD: 11/13/2019CLINICAL: Abnormal Mammogram. Digital breast tomosynthesis was performed in addition to routine CC and MLO views. Current mammographic images were evaluated by either a [employer] technology M-Vu or a [employer] ImageChecker CAD (computer aided detection system). Comparison is made to exams dated 09/22/2019 mammo gram, 06/20/2014 mammogram - [facility] and 07/05/2018 mammogram - [facility]. Recent exam with the following findings: LEFT BREAST: Asymmetry measuring 6 mm on CC view, retroareolar plane, posteriorly at a distance of 8 cm from the nipple. Tomosynthesis spot compression and possible ultrasound are recommended at this time.The tissue of the left breast is predominantly fatty. No suspicious mass, architectural distortion, malignant type calcification, or lymph node abnormality detected. Specifically, the previously noted asymmetry seen in the retroareolar plane of the left breast, posterior depth, 8 cm from the nipple, is not seen on the current images so this likely represents normal superimposed breast tissue. IMPRESSION: NEGATIVEThere is no mammographic evidence of malignancy. Resume annual screening mammography in one year. Aubree Park M.D. ar/:11/13/2019 08:54:56 Personal Security Specialist: Hayde ARCINIEGA, [facility]-FWletter sent: BIRADS 1-2 Normal Mammogram BI-RADS: 1 Negative SCR MAMM BILATERAL BART CAD DIGITAL 2019-10-09 09:31:05 - SCR MAMM BILATERAL BART CAD DIGITALBILATERAL DIGITAL SCREENING MAMMOGRAM 3D/2D WITH CAD: 09/22/2019CLINICAL: Asymptomatic. Digital breast tomosynthesis was performed in addition to routine CC and MLO views. Current mammographic images were evaluated by either a [employer] M-Vu or a [employer] ImageChecker CAD (computer aided detection system). Comparison is made to exams dated 07/05/2018 mammogram - [facility], 06/20/2014 mammogram - [facility]-, and 03/10/2011 mammogram - [facility]. The tissue of both breasts is predominantly fatty. There is left breast asymmetry measuring 6 mm on CC view, retroareolar plane, posteriorly at a distance of 8 cm from the nipple.No other suspicious mass, architectural distortion, malignant type calcification, or lymph node abnormality detected. IMPRESSION: INCOMPLETE: ADDITIONAL IMAGING EVALUATION NEEDEDLEFT BREAST: Asymmetry measuring 6 mm on CC view, retroareolar plane, posteriorly at a distance of 8 cm from the nipple. Tomosynthesis spot compression and possible ultrasound are recommended at this time.Honorio Sims M.D. qn/:10/09/2019 09:31:05 Personal Security Specialist: Tonia ARCINIEGA, [facility]FWletter sent: Additional Imaging Mammogram BI-RADS: 0 Incomplete: Additional Imaging Evaluation Needed CT ABDOMEN/PELVIS W 2019-07-30 01:14:00 [place] [address] Patient Name: JAVIER DELA CRUZ MR #: [id number] : 1950 Age/Sex: 68/F Req #: [id number] Adm Physician: Ordered by: EVANGELINA SILVA MD Report #: [id number] Location: ER Room/Bed: Procedure: [id number] CT/CT ABDOMEN/PELVIS W Exam Date: 07/30/19 Exam Time: 44 REPORT STATUS: Signed CT Abdomen And Pelvis with Intravenous Contrast INDICATION: Nausea, vomiting, epigastric pain abd pain [id number] TECHNIQUE: Thin collimation axial images obtained from the diaphragm to the level of the pubic symphysis following the uneventful administration of 100 cc of low osmolar, nonionic intravenous contrast. Dose reduction techniques used: Automated exposure control, adjustment of the mAs and/or kVp according to patient size, standardized low-dose protocol, and/or iterative reconstruction technique. RADIATION DOSE: Total DLP: 515.5 mGy*cm Estimated effective dose: (DLP x 0.015 x size fa ctor) mSv CTDIvol has been reviewed. It is below the limits set by the Radiation Protocol Committee (RPC). COMPARISON: None. ABDOMEN FINDINGS: Lung Bases: Clear. The visualized portions of the mediastinum are normal.. Liver: No evidence for mass. Gallbladder: Present and appears normal. No biliary ductal dilatation. Pancreas: Diffuse fatty atrophy. No mass or ductal dilatation. Spleen: Normal in size. No evidence of mass. Adrenal Glands: No evidence for mass. Kidneys: Right: Normal enhancement. No soft tissue mass. No hydronephrosis. Left: Normal enhancement. No soft tissue mass. No hydronephrosis. Lymph Nodes: No enlarged abdominal or periaortic lymph nodes. Aorta: Normal in diameter with scattered calcifications PELVIS FINDINGS: Bowel: Stomach: Collapsed but normal. Small Bowel: Normal in caliber with normal wall thickness. Large Bowel: Scattered diverticula. No associated inflammation.. Appendix: Normal appendix. Bladder: Well distended and normal. The uterus is absent. No adnexal mass. Peritoneum/retroperitoneum: No free fluid or fluid collection Bones: Grade 1 anterolisthesis of L4 on L5 without pars defects. There are degenerative changes of the posterior elements from L3 to S1. Soft tissues: Bilateral anterior abdominal wall foci of subcutaneous inflammation without evidence of air. IMPRESSION: 1. No evidence for bowel obstruction or inflammation. Diverticulosis coli. Normal appendix. 2. Bilateral anterior abdominal wall subcutaneous cutaneous inflammation that may be the result of injections or chronic inflammation. Signed by: Dr. Dillon Watson MD on 07/30/2019 1:17 AM Dictated By: DILLON WATSON MD 6 Transcribed By: FLORINDA on 07/30/19116 COPY TO: EVANGELINA SILVA MD CHEST SINGLE (PORTABLE) 2019-07-30 00:10:00 [place] [address] Patient Name: JAVIER DELA CRUZ MR #: [id number] : 1950 Age/Sex: 68/F Req #: [id number] Adm Physician: Ordered by: EVANGELINA SILVA MD Report #: [id number] Location: ER Room/Bed: Procedure: [id number] DX/CHEST SINGLE (PORTABLE) Exam Date: Exam Time: REPORT STATUS: Signed EXAMINATION: CHEST SINGLE (PORTABLE) COMPARISON: 06/08/2018 INDICATION: Vomiting, pain ERMD ORDER Y DISCUSSION: Frontal view of the chest obtained at 2311 hours. HEART AND MEDIASTINUM: The cardiomediastinal silhouette is unremarkable. Linear hyperdensity over the left clavicular head measures 1.7 cm and may be artifactual. LINES: None. LUNGS: The lungs are well inflated and clear. No pneumonia or pulmonary edema. PLEURA: No pleural effusion or pneumothorax. BONES AND SOFT TISSUES: No focal osseous lesion. The soft tissues are normal. IMPRESSION: No acute cardiopulmonary disease. Signed by: Dr. Dillon Watson MD on 07/30/2019 12:12 AM Dictated By: DILLON WATSON MD Transcribed By: FLORINDA on 07/30/1911 COPY TO: EVANGELINA SILVA MD Urine WBC 2019-07-29 23:30:00 Test Item Urine WBC (test code = 5821-4) 0-5 0-5 [facility] [id number] 23:30:00* Test Item Value Reference Range Interpretation Comments Urine RBC (test code = 61061-6) 11-20 0-5 H [facility] [id number] 23:30:00* Test Item Value Reference Range Interpretation Comments Urine Bacteria (test code = 02696-0) FEW NONE [facility] Epithelial [id number] 23:30:00 * Test Item Value Reference Range Interpretation Comments Urine Epithelial Cells (test code = 32961-2) FEW NONE [facility] [id number] 23:28:00* Test Item Value Reference Range Interpretation Comments Urine Color (test code = 5778-6) YELLOW YELLOW [facility] [id number] 23:28:00* Test Item Value Reference Range Interpretation Comments Urine Clarity (test code = 84767-5) CLEAR CLEAR [facility] Specific [id number] 23:28:00 * Test Item Value Reference Range Interpretation Comments Urine Specific [place] (test code = 5811-5) 1.020 1.010-1.02 5 [facility] [id number] 23:28:00* Test Item Value Reference Range Interpretation Comments Urine pH (test code = 52923-4) 6.5 5-7 [facility] Leukocyte [id number] 23:28:00* Test Item Value Reference Range Interpretation Comments Urine Leukocyte Esterase (test code = 04803-4) NEGATIVE NEGATIV E [facility] [id number] 23:28:00* Test Item Value Reference Range Interpretation Comments Urine Nitrite (test code = 09407-4) NEGATIVE NEGATIVE [facility] [id number] 23:28:00* Test Item Value Reference Range Interpretation Comments Urine Protein (test code = 45051-6) NEGATIVE NEGATIVE [facility] Glucose (UA)2019-07-29 23:28:00* Test Item Value Reference Range Interpretation Comments Urine Glucose (UA) (test code = 39664-1) NEGATIVE NEGATIVE [facility] [id number] 23:28:00* Test Item Value Reference Range Interpretation Comments Urine Ketones (test code = 97738-2) TRACE NEGATIVE H [facility] [id number] 23:28:00* Test Item Value Reference Range Interpretation Comments Urine Urobilinogen (test code = 82614-6) 0.2 0.2-1 [facility] [id number] 23:28:00* Test Item Value Reference Range Interpretation Comments Urine Bilirubin (test code = 1977-8) NEGATIVE NEGATIVE [facility] [id number] 23:28:00* Test Item Value Reference Range Interpretation Comments Urine Blood (test code = 41665-0) TRACE NEGATIVE [facility] [id number] 23:26:00* Test Item Value Reference Range Interpretation Comments Sodium Level (test code = 2951-2) 139 136-145 [facility] [id number] 23:26:00* Test Item Value Reference Range Interpretation Comments Potassium Level (test code = 2823-3) 3.8 3.5-5.1 [facility]loride [id number] 23:26:00* Test Item Value Reference Range Interpretation Comments Chloride Level (test code = 2075-0) 101 98-107 [facility] Campus[facility]bon Dioxide [id number] 23:26:00* Test Item Value Reference Range Interpretation Comments Carbon Dioxide Level (test code = 2028-9) 27 22-29 [facility] CampusAnion [id number] 23:26:00* Test Item Value Reference Range Interpretation Comments Anion Gap (test code = 56749-5) 14.8 8-16 [facility] Urea [id number] 23:26:00* Test Item Value Reference Range Interpretation Comments Blood Urea Nitrogen (test code = 3094-0) 14 7-26 [facility] CampusCreatinine2019-09-07 23:26:00* Test Item Value Reference Range Interpretation Comments Creatinine (test code = 2160-0) 0.85 0.57-1.11 [facility]/Creatinine Zfgdg2677-79-96 23:26:00* Test Item Value Reference Range Interpretation Comments BUN/Creatinine Ratio (test code = 3097-3) 16 6-25 [facility] Glomerular Filtration Rate 2019-07-29 23:26:00* Test Item Value Reference Range Interpretation Comments Estimat Glomerular Filtration Rate (test code = 518772300) > 60 >60 Ranges were taken from the National Kidney Disease Education Program and the [facility] literature.Reference ranges:60 or greater: Elpysl83-97 ( for 3 consecutive months): Chronic kidney disease 15 or less: Kidney failureThe Hospitals of Providence Sierra CampusGlucose Hlpqf2360-64-49 23:26:00* Test Item Value Reference Range Interpretation Comments Glucose Level (test code = RHG9763) 150 74-118 H [facility] CampusCalcium Xnhlh8299-45-50 23:26:00* Test Item Value Reference Range Interpretation Comments Calcium Level (test code = 92853-2) 9.8 8.4-10.2 [facility] CampusTotal Lidjkehuy7761-46-06 23:26:00* Test Item Value Reference Range Interpretation Comments Total Bilirubin (test code = 1975-2) 0.7 0.2-1.2 [facility]Aspartate Amino Transf (AST/SGOT) 2019-07-29 23:26:00* Test Item Value Reference Range Interpretation Comments Aspartate Amino Transf (AST/SGOT) (test code = Aspartate Amino Transf (AST/SGOT)) 16 5-34 [facility]Alanine Aminotransferase (ALT/SGPT) 2019-07-29 23:26:00* Test Item Value Reference Range Interpretation Comments Alanine Aminotransferase (ALT/SGPT) (test code = 1742-6) 11 0-55 [facility] CampusTotal Wiojdkn1101-43-46 23:26:00* Test Item Value Reference Range Interpretation Comments Total Protein (test code = 2885-2) 7.0 6.5-8.1 [facility]Albumin2019-09-07 23:26:00* Test Item Value Reference Range Interpretation Comments Albumin (test code = 1751-7) 3.9 3.5-5.0 [facility]Globulin2019-09-07 23:26:00* Test Item Value Reference Range Interpretation Comments Globulin (test code = 98278-5) 3.1 2.3-3.5 [facility]Albumin/Globulin Hggmt8640-87-96 23:26:00 * Test Item Value Reference Range Interpretation Comments Albumin/Globulin Ratio (test code = 1759-0) 1.3 0.8-2.0 [facility] CampusAlkaline Grzavhrdayk9206-43-67 23:26:00* Test Item Value Reference Range Interpretation Comments Alkaline Phosphatase (test code = 6768-6) 71 40-150 [facility] CampusCreatine Oxgpef4988-34-38 23:26:00* Test Item Value Reference Range Interpretation Comments Creatine Kinase (test code = 2157-6) 55 29-168 [facility] CampusCreatine Kinase [id number] 23:26:00* Test Item Value Reference Range Interpretation Comments Creatine Kinase MB (test code = 19408-2) 1.20 0-5.0 [facility] CampusTroponin [id number] 23:26:00* Test Item Value Reference Range Interpretation Comments Troponin I (test code = TPO5279) 0.012 0-0.300 [facility] CampusLipase2019-09-07 23:26:00* Test Item Value Reference Range Interpretation Comments Lipase (test code = 3040-3) 13 8-78 [facility] CampusWhite Blood Cucpg3064-69-45 23:10:00* Test Item Value Reference Range Interpretation Comments White Blood Count (test code = 6690-2) 9.65 4.8-10.8 [facility] CampusRed Blood Robsy4850-27-41 23:10:00* Test Item Value Reference Range Interpretation Comments Red Blood Count (test code = 789-8) 3.91 3.6-5.1 [facility]Hemoglobin2019-09-07 23:10:00* Test Item Value Reference Range Interpretation Comments Hemoglobin (test code = 75666-8) 11.7 12.0-16.0 L [facility] CampusHematocrit2019-09-07 23:10:00* Test Item Value Reference Range Interpretation Comments Hematocrit (test code = 4544-3) 35.1 34.2-44.1 [facility] CampusMean Corpuscular Pvxylh0856-75-16 23:10:00* Test Item Value Reference Range Interpretation Comments Mean Corpuscular Volume (test code = 787-2) 89.8 81-99 [facility] CampusMean Corpuscular Ozfatpysft4437-33-97 23:10:00* Test Item Value Reference Range Interpretation Comments Mean Corpuscular Hemoglobin (test code = 785-6) 29.9 28-32 [facility] Hemoglobin Concent 2019-07-29 23:10:00* Test Item Value Reference Range Interpretation Comments Mean Corpuscular Hemoglobin Concent (test code = 786-4) 33.3 31-35 [facility] CampusRed Cell Distribution Isqrs5423-28-64 23:10:00* Test Item Value Reference Range Interpretation Comments Red Cell Distribution Width (test code = 97069-8) 11.9 11.7 -14.4 [facility] CampusPlatelet Gacgy4912-03-62 23:10:00* Test Item Value Reference Range Interpretation Comments Platelet Count (test code = 777-3) 331 140-360 [facility] CampusNeutrophils (%) (Auto)2019-07-29 23:10:00 * Test Item Value Reference Range Interpretation Comments Neutrophils (%) (Auto) (test code = 72822-9) 64.4 38.7-80.0 [facility] CampusLymphocytes (%) (Auto)2019-07-29 23:10:00 * Test Item Value Reference Range Interpretation Comments Lymphocytes (%) (Auto) (test code = 736-9) 26.8 18.0-39.1 [facility] CampusMonocytes (%) (Auto)2019-07-29 23:10:00* Test Item Value Reference Range Interpretation Comments Monocytes (%) (Auto) (test code = 5905-5) 6.9 4.4-11.3 [facility]Eosinophils (%) (Auto)2019-07-29 23:10:00 * Test Item Value Reference Range Interpretation Comments Eosinophils (%) (Auto) (test code = 713-8) 1.2 0.0-6.0 [facility]Basophils (%) (Auto)2019-07-29 23:10:00* Test Item Value Reference Range Interpretation Comments Basophils (%) (Auto) (test code = 706-2) 0.5 0.0-1.0 [facility] CampusIM GRANULOCYTES %2019-07-29 23:10:00* Test Item Value Reference Range Interpretation Comments IM GRANULOCYTES % (test code = IM GRANULOCYTES %) 0.2 0.0- 1.0 [facility]Neutrophils # (Auto)2019-07-29 23:10:00* Test Item Value Reference Range Interpretation Comments Neutrophils # (Auto) (test code = 751-8) 6.2 2.1-6.9 [facility] CampusLymphocytes # (Auto)2019-07-29 23:10:00* Test Item Value Reference Range Interpretation Comments Lymphocytes # (Auto) (test code = 78086-4) 2.6 1.0-3.2 [facility] CampusMonocytes # (Auto)2019-07-29 23:10:00* Test Item Value Reference Range Interpretation Comments Monocytes # (Auto) (test code = 742-7) 0.7 0.2-0.8 [facility]Eosinophils # (Auto)2019-07-29 23:10:00* Test Item Value Reference Range Interpretation Comments Eosinophils # (Auto) (test code = 711-2) 0.1 0.0-0.4 [facility]Basophils # (Auto)2019-07-29 23:10:00* Test Item Value Reference Range Interpretation Comments Basophils # (Auto) (test code = 704-7) 0.1 0.0-0.1 [facility] CampusAbsolute Immature Granulocyte (auto 2019-07-29 23:10:00* Test Item Value Reference Range Interpretation Comments Absolute Immature Granulocyte (auto (temo t code = Absolute Immature Granulocyte (auto) 0.02 0-0.1 [facility] CampusBedside Hflqgqc9362-03-23 10:21:00* Test Item Value Reference Range Interpretation Comments Bedside Glucose (test code = 75032-1) 90 70-120 Meter ID: [id number] Hospitals of [facility] CampusCHEST 2 VIEWS 2019-06-08 17:15:00 [place] [address] Patient Name: JAVIER DELA CRUZ MR #: [id number] : 1950 Age/Sex: 68/F Req #: [id number] Adm Physician: Ordered by: ARCENIO JOVEL DPM Report #: [id number] Location: OR Room/Bed: Procedure: [id number] DX/CHEST 2 VIEWS Exam Date: 06/08/19 Exam Time: 1701 REPORT STATUS: Signed EXAMINAT ION: CHEST 2 VIEWS INDICATION: Pre-operative COMPARISON: None FINDINGS: TUBES and LINES: None. LUNGS: The lung volumes are nor mal. No focal consolidation or pulmonary edema. PLEURA: No pleural effusio n or pneumothorax. HEART AND MEDIASTINUM: The cardiomediastinal silhouette is normal in size and contour. BONES AND SOFT TISSUES: No acute fracture or dislocation. UPPER ABDOMEN: No free air under the diaphragm. IMPRE SSION: No focal pneumonia or pulmonary edema. Signed by: Tyrel Polanco MD on 06/08/2019 5:16 PM Dictated By: TYREL POLANCO MD 15 Transcribed By: FLORINDA on 06/08/191715 COPY TO: ARCENIO JOVEL DPM
[2020-05-02] MEDS ORDERED: LACTATED RINGER'S 1,000 ML ONE (10:06)
[2020-05-02] MEDS: LACTATED RINGER'S 1,000 ML IV SCH ×2 (10:15→18:19)
[2020-05-02] MEDS: METOPROLOL SUCCINATE 25 MG TAB XL PO SCH ×2 (11:00→17:16)
[2020-05-02] MEDS: LISINOPRIL 20 MG TAB PO SCH (11:00)
[2020-05-02] MEDS: INSULIN LISPRO 100 UNIT/1 ML 3ML VIAL SQ SCH ×5 (11:30→21:20)
[2020-05-02] MEDS: PANTOPRAZOLE SOD 40 MG TABEC PO SCH (12:59)
[2020-05-02] MEDS: ESCITALOPRAM OXALATE 10 MG TAB PO SCH (12:59)
[2020-05-02] MEDS: HYDROCHLOROTHIAZIDE 25 MG TAB PO SCH (13:00)
[2020-05-02] MEDS: OXYCODONE/ACETAMINOPHEN 5-325 1 EACH TABLET PO PRN (13:23)
[2020-05-02] MEDS ORDERED: MIDAZOLAM HCL 2 MG/2 ML VIAL ONE (13:50)
[2020-05-02] MEDS ORDERED: FENTANYL CITRATE/PF 100MCG/2 ML INJ ONE (13:50)
[2020-05-02] MEDS: METOCLOPRAMIDE HCL 10MG/10ML UDC PO SCH ×2 (14:30→21:20)
[2020-05-02] MEDS: CEFAZOLIN SOD 1 GM/NS 50ML 50 ML IV SCH ×2 (14:30→21:19)
[2020-05-02] MEDS: INSULIN GLARGINE 100 UNITS/ML VIAL SQ SCH (15:54)
[2020-05-02] MEDS ORDERED: CEPACOL SORE THROAT LOZENGES PO PRN (16:15)
[2020-05-02] MEDS: METFORMIN HCL 500 MG TAB PO SCH (17:15)
[2020-05-02] MEDS ORDERED: GLYCOPYRROLATE INJ 0.2 MG/ML VIAL ONE (17:58)
[2020-05-02] MEDS ORDERED: LIDOCAINE HCL 2% LOCAL INJ 5 ML SDV VIAL INJ ONE (17:58)
[2020-05-02] MEDS ORDERED: EPHEDRINE SULFATE INJ 50 MG/ML VIAL ONE (17:58)
[2020-05-02] MEDS ORDERED: ONDANSETRON HCL INJ 2MG/ML 2ML 2 MG/ML VIAL ONE (17:58)
[2020-05-02] MEDS ORDERED: DEXAMETHASONE SOD PHOS INJ 4 MG/ML VIAL ONE (17:58)
[2020-05-02] MEDS ORDERED: ROCURONIUM BROMIDE 10 MG/ML 5ML VIAL IV ONE (17:58)
[2020-05-02] MEDS ORDERED: ACETAMINOPHEN 1000 MG/100 ML IV ONE (17:58)
[2020-05-02] MEDS ORDERED: NEOSTIGMINE 1 MG/ML 10ML VIAL ONE (17:58)
[2020-05-02] MEDS ORDERED: PROPOFOL IV EMULSION 10 MG/ML 20 ML VIAL ONE (17:58)
[2020-05-02] MEDS ORDERED: SEVOFLURANE INHAL SOLN 250 ML PEN BTL ONE (17:58)
--- NOTE | 2020-05-02 19:02 | NUR ---
PATIENT IN BED. CALL LIGHT WITHIN REACH. BEDSIDE SHIFT REPORT RECEIVED FROM PREVIOUS NURSE.
[2020-05-02] MEDS ORDERED: SIMVASTATIN 40 MG TAB PO SCH (21:00)
[2020-05-03] VITALS: BP 135/69
[2020-05-03] MEDS: OXYCODONE/ACETAMINOPHEN 5-325 1 EACH TABLET PO PRN (02:28)
[2020-05-03] MEDS: LACTATED RINGER'S 1,000 ML IV SCH (02:31)
[2020-05-03 04:00] VITALS: BP 159/65
[2020-05-03] MEDS: CEFAZOLIN SOD 1 GM/NS 50ML 50 ML IV SCH (06:00)
[2020-05-03] MEDS: METOCLOPRAMIDE HCL 10MG/10ML UDC PO SCH (06:00)
--- NOTE | 2020-05-03 07:05 | NUR ---
Report received from Sandy VARGAS and I assumed care of the patient. The patient was asked if she needed anything at this time and she responded, "no, I am waiting to go home." Her discharge is ordered and she was told she would need her xray of her neck this morning and then she can d/c. She stated she will call her daughter.
--- NOTE | 2020-05-03 07:15 | NUR ---
GAVE BEDSIDE SHIFT REPORT TO ONCOMING NURSE. CALL LIGHT WITHIN REACH. PATIENT IN BED.
--- NOTE | 2020-05-03 08:00 | NUR ---
Patient is asking for pain med and she was given Percocet. She is going to xray for neck follow up.
[2020-05-03 08:02] VITALS: BP 166/67
[2020-05-03 08:30] VITALS: BP 166/67
[2020-05-03] MEDS: INSULIN LISPRO 100 UNIT/1 ML 3ML VIAL SQ SCH ×2 (08:42→08:45)
[2020-05-03] MEDS: PANTOPRAZOLE SOD 40 MG TABEC PO SCH (08:44)
[2020-05-03] MEDS: METFORMIN HCL 500 MG TAB PO SCH (08:45)
[2020-05-03] MEDS: ESCITALOPRAM OXALATE 10 MG TAB PO SCH (08:45)
[2020-05-03] MEDS: HYDROCHLOROTHIAZIDE 25 MG TAB PO SCH (08:45)
[2020-05-03] MEDS: METOPROLOL SUCCINATE 25 MG TAB XL PO SCH (08:46)
[2020-05-03] MEDS: LISINOPRIL 20 MG TAB PO SCH (08:46)
[2020-05-03] MEDS: INSULIN GLARGINE 100 UNITS/ML VIAL SQ SCH (08:47)
[2020-05-03] MEDS ORDERED: NORCO 7.5-3251 EACH PO (09:59)
--- NOTE | 2020-05-03 10:00 | NUR ---
The patient mentioned that she is allergic to titanium and that Dr. Hoyos used Titainium screws in this surgery. The patient was instructed to tell Dr. Hoyos when she gets home and follow up with him.
--- NOTE | 2020-05-03 10:50 | NUR ---
Discontinued IV and patient was taken in wheelchair to car. Daughter driving her home.
--- NOTE | 2020-05-03 11:03 | Diagnostic Imaging Report ---
EXAMINATION: C-SPINE 2 VIEWS AP LATERAL INDICATION: Postoperative COMPARISON: None FINDINGS: AP and lateral radiograph of the cervical spine demonstrate postoperative findings of cervical discectomy and fusion at C5-6. Hardware appears intact. No unexpected fracture. Mild prevertebral soft tissue thickening and emphysema. IMPRESSION: Anatomic alignment status post cervical discectomy and fusion at C5-6. Signed by: Katiana Bond MD on 05/03/2020 11:00 AM
== END 2020-05-03 10:52 | disposition home or self-care (01) ==
LOC: OR 05:38 → PACU V 08:33 → MED/SURG 09:42
PROVIDERS: ADMIT Neurological Surgery; ATTEND Neurological Surgery
DX: M50.122 Cervical disc disorder at C5-C6 level with radiculopathy (principal); M19.90 Unspecified osteoarthritis, unspecified site; E11.9 Type 2 diabetes mellitus without complications; K21.9 Gastro-esophageal reflux disease without esophagitis; I10 Essential (primary) hypertension; E78.5 Hyperlipidemia, unspecified; R12 Heartburn; Z90.710 Acquired absence of both cervix and uterus; Z01.810 Encounter for preprocedural cardiovascular examination; Z01.812 Encounter for preprocedural laboratory examination; Z01.818 Encounter for other preprocedural examination; Z11.59 Encounter for screening for other viral diseases; Z79.82 Long term (current) use of aspirin; Z88.2 Allergy status to sulfonamides; Z79.4 Long term (current) use of insulin
CPT/HCPCS: 20931; 22551; 22845; 36415 ×3; 71046; 72040; 80048; 82948 ×2; 85025; 85610; 85730; 86850; 86900; 87635; 88304; 93005; C1713 ×2; C9359; G0378 ×2; J0131; J0690 ×2; J1100; J1170 ×2; J1815; J2001; J2250; J2405 ×2; J2704; J2710; J3010; J3370; J7121 ×2; J8597 ×2; S0164 ×2; 77003

== ENCOUNTER 2024-07-12 08:00 | Outpatient (RCR) | payer OTHER ==
[~2024-07-12 08:00] MED LIST changes: +NORCO 7.5-3251 EACH PO
== END 2024-07-22 ==
LOC: PT 08:00
PROVIDERS: ATTEND Specialist
DX: M75.81 Other shoulder lesions, right shoulder (principal)